=== PATIENT | female | born 1995 | race Caucasian/White ===

== ENCOUNTER 2017-12-12 09:49 | Outpatient (CLI) | payer BC ==
--- NOTE | 2017-12-12 13:22 | ULT ---
PELVIC ULTRASOUND: History: Lower abdominal pain for five years. History of IBS. Technique: Multiplanar grayscale and color doppler images were obtained in a transabdominal pelvic ul trasound. FINDINGS: The uterus is normal in size and appearance without focal abnormality. The endometrial stripe is norm al in thickness measuring 4 mm. No free fluid is seen in the pelvis. Neither ovary is visualized. IMPRESSION: No significant pelvic abnormality. POS: [facility]
--- NOTE | 2017-12-12 13:25 | ULT ---
COMPLETE ABDOMINAL ULTRASOUND: Comparison: None. History: Gastroenteritis. Abdominal pain for five years. History of irritable bowel syndrome. Technique: Multiplanar grayscale and color doppler images were obtained in a complete abdominal ultra sound. FINDINGS: The liver is normal in echogenicity without focal lesions or intrahepatic ductal dilatation. Gallblad carolina is normal without stones, sludge, gallbladder wall thickening, or pericholecystic fluid. The comm on bile duct is normal measuring 2 mm. The aorta and inferior vena cava are normal in caliber. The spleen is normal in echogenicity without focal lesions and measures 11.8 cm in length. The visualized portions of the pancreas are unremarkabl e. Both kidneys are normal in echogenicity without hydronephrosis or calculi and measure 10.9 and 11.1 c m in length on the right and left, respectively. IMPRESSION: 1. Unremarkable abdominal ultrasound. POS: [facility]
== END 2017-12-12 09:50 | disposition home or self-care (01) ==
LOC: SCSULT 09:49
PROVIDERS: ATTEND Internal Medicine Gastroenterology
DX: R10.30 Lower abdominal pain, unspecified (principal); K52.9 Noninfective gastroenteritis and colitis, unspecified; I49.1 Atrial premature depolarization
CPT/HCPCS: 76700; 76856; 76857